=== PATIENT | male | born 1990 | race Caucasian/White ===

== ENCOUNTER 2021-08-05 13:33 | Emergency (ER) | payer OTHER ==
[~2021-08-05] VITALS: Ht 188 cm; Wt 113.4 kg
[2021-08-05 17:11] LABS: BASOPHIL 0.5 % (0-2); EOSINOPHIL 0.7 % (0-5); HCT 48.4 % (42.0-52.0); HGB 16.5 g/dl (13.2-18.0); LYMPHOCYTE 22.5 % (15-48); MCH 31.6 pg (25.0-31.0); MCHC 34.1 g/dL (32.0-36.0); MCV 92.7 fL (78.0-100.0); MONOCYTE 9.9 % (0-12); MPV 10.6 fL (6.0-9.5); NRBC 0; PLT 215 K/uL (150-400); RBC 5.22 M/uL (4.70-6.00); RDW 11.3 % (11.5-14.0); WBC 9.9 K/uL (4.0-10.5)
[2021-08-05 17:17] LABS: BUN/CREAT RATIO (CALC) 9.7 RATIO; CREATININE 1.13 mg/dL (0.67-1.17); POTASSIUM 4.3 mmol/L (3.5-5.1)
[2021-08-05] MEDS ORDERED: CIPRO500 MG PO (17:55)
[2021-08-05] MEDS ORDERED: NORCO 5-325 TA1 EACH PO (17:55)
[2021-08-05] MEDS ORDERED: ONDANSETRON HCL4 MG PO (17:55)
[2021-08-05] MEDS ORDERED: METRONIDAZOLE500 MG PO (17:55)
[2021-08-05 17:58] LABS: BILIRUBIN NEGATIVE (NEGATIVE); BLOOD NEGATIVE Ery/uL (NEGATIVE); CLARITY CLEAR (CLEAR); COLOR YELLOW (YELLOW); GLUCOSE (U) NORMAL (NORMAL); LEUKOCYTES NEGATIVE Leu/uL (NEGATIVE); NITRITE NEGATIVE (NEGATIVE); PROTEIN NEGATIVE (NEGATIVE); SPECIFIC GRAVITY 1.025 (1.001-1.030)
== END 2021-08-05 18:15 | disposition home or self-care (01) ==
LOC: FER 13:33
PROVIDERS: Nurse Practitioner Family
DX: K57.32 Diverticulitis of large intestine without perforation or abscess without bleeding (principal)
CPT/HCPCS: 36415; 80048; 81003; 85025; J2270; J7030